=== PATIENT | female | born 1955 | race Native Hawaiian/Other Pacific Islander ===

== ENCOUNTER 2019-12-29 16:56 | Emergency (ER) | payer OTHER ==
[~2019-12-29] VITALS: Ht 162.6 cm; Wt 88.5 kg
[~2019-12-29 16:56] MED LIST: AMLODIPINE BESYLATE PO; ASPERCREME EX; ASPIRIN REGULA325 MG PO; BUPROPION HYDR150 M1 PO; CETI10TA PO; CHOL100034 PO; CYAN10009 IM; DONEPEZIL HYDRO10 M1 PO; ESCI10TA PO; FIORICET 50-3001 CAP PO; FLONASE AL50 MCG/ACT INH; FLUTMIS6 INH; FOLI1TAB26 PO; FURO40TA93 PO; INSU300I SC; IPRASOL5 INH; LEVO0.1T6 PO; LIDO EX; LORA0.5T17 PO; MAGNESIUM400 M1 PO; MELATONIN3 MG PO; MEMANTINE HCL10 MG PO; METF500T PO; MILK OF MA400 MG/5 M PO; MIRTAZAPINE7.5 MG PO; MONTELUKAST SOD10 MG PO; OLAN2.5T2 PO; OXCARBAZEPIN300 MG PO; POTA10CA3 PO; PRAMIPEXOLE1 MG PO; PRAVACHOL80 MG PO; RISP1TAB PO; SERT100T PO; TIZANIDINE HYDRO4 MG PO; TYLENOL325 M1 PO
[2019-12-29 17:10] VITALS: BP 144/78; TEMP 97.9
[2019-12-29 17:54] LABS: PLATELET COUNT 383 K/uL (152-353)
[2019-12-29 18:01] LABS: POTASSIUM 3.8 mmol/L (3.6-5.2)
[2019-12-30] MEDS ORDERED: FLUTMIS6 INH (05:52)
[2019-12-30] MEDS ORDERED: AMLODIPINE BESYLATE PO (05:54)
[2019-12-30] MEDS ORDERED: ASPERCREME LIDOCA4 % EX (05:55)
[2019-12-30] MEDS ORDERED: ASPI-93 PO (05:56)
[2019-12-30] MEDS ORDERED: LORA0.5T17 PO (05:57)
[2019-12-30] MEDS ORDERED: BUPROPION HYDR150 M1 PO ×2 (05:58→06:55)
[2019-12-30] MEDS ORDERED: VITAMIN D320 MCG PO (05:59)
[2019-12-30] MEDS ORDERED: B-12500 MCG INJ (06:00)
[2019-12-30] MEDS ORDERED: DONEPEZIL HYDRO10 MG PO (06:03)
[2019-12-30] MEDS ORDERED: FIORICET 50-3001 CAP PO (06:09)
[2019-12-30] MEDS ORDERED: FLONASE AL50 MCG/ACT NAS (06:11)
[2019-12-30] MEDS ORDERED: KP FOLIC ACID1 MG PO (06:12)
[2019-12-30] MEDS ORDERED: FUROSEMIDE40 MG PO (06:14)
[2019-12-30] MEDS ORDERED: INSUINJP SC (06:17)
[2019-12-30] MEDS ORDERED: IPRATROPIUM/ INH (06:17)
[2019-12-30] MEDS ORDERED: EUTHYROX100 MCG PO (06:19)
[2019-12-30] MEDS ORDERED: LEXAPRO10 MG PO (06:21)
[2019-12-30] MEDS ORDERED: MAGNESIUM OXID400 M1 PO (06:22)
[2019-12-30] MEDS ORDERED: MEMANTINE HCL10 MG PO (06:46)
[2019-12-30] MEDS ORDERED: METF500T PO (06:47)
[2019-12-30] MEDS ORDERED: MONTELUKAST SOD10 MG PO (06:49)
[2019-12-30] MEDS ORDERED: MILK OF MA400 MG/5 M PO (06:49)
[2019-12-30] MEDS ORDERED: OXCARBAZEPIN300 MG PO (06:50)
[2019-12-30] MEDS ORDERED: KLOR-CON SPRIN10 MEQ PO (06:51)
[2019-12-30] MEDS ORDERED: PRAMIPEXOLE1 MG PO (06:52)
[2019-12-30] MEDS ORDERED: PRAVACHOL80 MG PO (06:52)
[2019-12-30] MEDS ORDERED: TIZANIDINE HYDRO4 MG PO (06:53)
[2019-12-30] MEDS ORDERED: OLAN2.5T2 PO (06:54)
[2019-12-30] MEDS ORDERED: TYLENOL325 MG PO (06:54)
[2019-12-30] MEDS ORDERED: CETI10TA PO (06:55)
[2019-12-30] MEDS ORDERED: MELATONIN3 MG PO (06:56)
[2019-12-30] MEDS ORDERED: TAMIFLU75 MG PO (06:57)
== END 2019-12-29 18:45 | disposition other institution (70) ==
LOC: ED 16:56
PROVIDERS: Family Medicine
DX: F32.89 Other specified depressive episodes (principal); F41.8 Other specified anxiety disorders; Z91.14 Patient's other noncompliance with medication regimen; Z04.6 Encounter for general psychiatric examination, requested by authority
CPT/HCPCS: 80053; 81000; 85027; 93005; 99283; 99284